=== PATIENT | female | born 2000 | race Caucasian/White ===

== ENCOUNTER → 2018-04-26 16:37 | Outpatient (CLI) | payer OTHER, SELFPAY ==
[2013-02-14 19:06] VITALS: BMI 24.9
--- NOTE | 2018-04-26 16:43 | RAD_ITS ---
STUDY: X-RAY - RIGHT HAND REASON FOR EXAM: Female, 18 years old. Injury to the right thumb this morning. MCP joint. TECHNIQUE: 3 view(s) of the hand. COMPARISON: None. FINDINGS: Normal radiocarpal articulation. Normal distal radioulnar joint. Normal visualized carpal bones. Normal carpal articulations Normal carpometacarpal articulation of the thumb. Normal second through fifth carpometacarpal joints. Normal metacarpi. Normal metacarpophalangeal joint of the thumb. Normal interphalangeal joint of the thumb. Normal proximal and distal phalanges of the thumb. Normal metacarpophalangeal joints of the second through fifth fingers. Normal proximal and distal interphalangeal joints of the second through fifth fingers. Normal phalanges of the second through fifth fingers. The soft tissue structures are unremarkable. RAD/Hand Min 3 Views IMPRESSION: Normal x-ray examination of the hand. Electronically Signed: Jaquan Tilley MD at 6:28 EST , Service support ,
== END ==
PROVIDERS: Family Provider Family Medicine; PCP Family Medicine; Referring Provider Family Medicine; Visit Provider Family Medicine
DX: M79.644 Pain in right finger(s) (principal)
CPT/HCPCS: 73130

== ENCOUNTER → 2020-06-28 15:45 | Outpatient (CLI) | payer OTHER, SELFPAY ==
[2020-06-28 14:27] VITALS: BMI 31.2
[2020-06-28 16:56] LABS: NATERA MAILED SPECIMEN
[2020-06-28 17:21] LABS: Absolute Lymphocyte Count 2.68 X10^3/uL (0.83-4.51); Absolute Neutrophil Count 8.1 X10^3/uL (2.0-7.7); Basophil# 0.06 X10^3/uL; Basophil% 0.5 % (0-1); Eosinophil# 0.27 X10^3/uL; Eosinophils% 2.1 % (0-5); Hematocrit 38.6 % (37-47); Hemoglobin 13.3 g/dL (12.0-15.0); Lymphocyte # 2.68 X10^3/ul (0.83-4.51); Lymphocyte % 21.3 % (19-41); Mean Corp Hgb Conc 34.5 g/dL (32-36); Mean Corpuscular Hgb 31.7 pg (27.0-32.0); Mean Corpuscular Volume 91.9 fL (81-99); Monocyte# 1.32 X10^3/uL; Monocyte% 10.5 % (0-10); NRBC Flagged by Analyzer 0 % (0-5); Neutrophil # 8.14 X10^3/uL (2.7-7.7); Neutrophil % 64.9 % (47-70); Platelet Count 247 K/mm3 (150-450); RBC Distribution Width CV 12.6 % (11.6-14.6); RBC Distribution Width SD 42.4 fl (35.1-43.9); White Blood Count 12.6 K/mm3 (4.4-11.0)
[2020-06-28 17:29] LABS: Amphetamine Urine VISTA POSITIVE (<1000 ng/mL); Barbiturate Urine VISTA NEGATIVE (< 200 ng/mL); Benzodiazepine Urine VISTA NEGATIVE (< 200 ng/mL); Cocaine Urine VISTA NEGATIVE (< 300 ng/mL); Ecstacy Urine VISTA NEGATIVE (< 500 ng/mL); Methadone Urine VISTA NEGATIVE (< 300 ng/mL); PCP Urine VISTA NEGATIVE (< 25 ng/mL); THC Urine VISTA POSITIVE (< 50 ng/mL); Vista UDS pH Range 5
[2020-06-28 18:03] LABS: Glucose Challenge Gest 1H 50g 85 mg/dL (70-140)
[2020-06-29 09:03] LABS: HIV - WCH Non-Reactive (Nonreactive); Hepatitis B Surface Antigen Non-Reactive (Nonreactive); Hepatitis C Antibody Non-Reactive (Nonreactive); Rubella IgG Reactive (Nonreactive); Syphilis Antibodies Non-reactive
[2020-07-04 20:08] LABS: Amphetamine Negative (Cutoff=500); Methamphetamines Positive (.)
[2020-07-04 20:21] LABS: Amphetamine Ur Confirm Positive (.)
== END ==
PROVIDERS: PCP Family Medicine; Referring Provider Obstetrics & Gynecology; Visit Provider Obstetrics & Gynecology
DX: O99.210 Obesity complicating pregnancy, unspecified trimester (principal); E66.9 Obesity, unspecified; Z31.430 Encounter of female for testing for genetic disease carrier status for procreative management
CPT/HCPCS: 36415; 80307; 82950; 85025; 86703; 86762; 86780; 86803; 86850; 86900; 86901; 87086; 87088; 87340

== ENCOUNTER → 2020-08-24 14:27 | Outpatient (CLI) | payer OTHER, SELFPAY ==
[2020-08-21 15:10] VITALS: BMI 31.2
--- NOTE | 2020-08-24 14:29 | US_ITS ---
STUDY: SECOND AND THIRD TRIMESTER OBSTETRICAL ULTRASOUND REASON FOR EXAM: Female, 20 years old screening anatomy LMP: 03/27/2020 TECHNIQUE: Transabdominal and Transvaginal TECHNICAL QUALITY: Adequate. PRIOR ULTRASOUND: None. FINDINGS: There is a single intrauterine fetus. The fetus is in a cephalic presentation. There is demonstrated cardiac activity with a heart rate of 152 bpm. There is a normal amniotic fluid volume. The largest amniotic fluid pocket measures 5.5 cm. The placenta is anterior and low lying but not previa in location. There are Grade 0 placental changes. The cervix measures 4.6 cm in length. The bilateral adnexal regions are normal. BIOMETRY: BPD: 5.1: 21 weeks, 3 days HC: 18.9: 21 weeks, 1 days AC: 16.2: 21 weeks, 2 days FL: 3.5: 20 weeks, 5 days CI: FL/BPD: FL/HC: FL/AC: HC/AC: age by current US: 21 weeks, 3 days. TAMMY by current US: 01-20. Estimated weight: 405 grams, +/- 61 grams, 31 %. Age by LMP: 21 weeks, 1 days. TAMMY by LMP: 01/03/2021. ANATOMY: Gender: Female Cranium: Normal lateral ventricles. Normal choroid plexus. Normal cerebellum. Normal cisterna magna. Normal face, nose and lips. Chest: Normal 4-chamber heart. Abdomen/Pelvis: Normal diaphragm. Normal stomach. Normal abdominal wall. Normal cord insertion. Normal 3 vessel cord. Normal kidneys. Normal bladder. Spine: Normal cervical spine. Normal thoracic spine. Normal lumbar spine. Normal sacrum. Extremities: Normal bilateral upper extremities. Normal bilateral lower extremities. IMPRESSION: Single live fetus in a vertex presentation. No demonstrated anatomic abnormality. Placenta is grade 0 and is not low-lying. Cervix is closed. age by current US: 21 weeks, 3 days. TAMMY by current US: 01-20. Estimated weight: 405 grams, +/- 61 grams, 31 %. Electronically Signed: Blair Milner MD at 15:53 EDT , Service support , STUDY: SECOND AND THIRD TRIMESTER OBSTETRICAL ULTRASOUND REASON FOR EXAM: Female, 20 years old screening anatomy LMP: 03/27/2020 TECHNIQUE: Transabdominal and Transvaginal TECHNICAL QUALITY: Adequate. PRIOR ULTRASOUND: None. FINDINGS: There is a single intrauterine fetus. The fetus is in a cephalic presentation. There is demonstrated cardiac activity with a heart rate of 152 bpm. There is a normal amniotic fluid volume. The largest amniotic fluid pocket measures 5.5 cm. The placenta is anterior and low lying but not previa in location. There are Grade 0 placental changes. The cervix measures 4.6 cm in length. The bilateral adnexal regions are normal. BIOMETRY: BPD: 5.1: 21 weeks, 3 days HC: 18.9: 21 weeks, 1 days AC: 16.2: 21 weeks, 2 days FL: 3.5: 20 weeks, 5 days CI: FL/BPD: FL/HC: FL/AC: HC/AC: age by current US: 21 weeks, 3 days. TAMMY by current US: 01-20. Estimated weight: 405 grams, +/- 61 grams, 31 %. Age by LMP: 21 weeks, 1 days. TAMMY by LMP: 01/03/2021. ANATOMY: Gender: Female Cranium: Normal lateral ventricles. Normal choroid plexus. Normal cerebellum. Normal cisterna magna. Normal face, nose and lips. Chest: Normal 4-chamber heart. Abdomen/Pelvis: Normal diaphragm. Normal stomach. Normal abdominal wall. Normal cord insertion. Normal 3 vessel cord. Normal kidneys. Normal bladder. Spine: Normal cervical spine. Normal thoracic spine. Normal lumbar spine. Normal sacrum. Extremities: Normal bilateral upper extremities. Normal bilateral lower extremities. US/OB Anatomy Scan IMPRESSION: Single live fetus in a vertex presentation. No demonstrated anatomic abnormality. Placenta is grade 0 and is not low-lying. Cervix is closed. age by current US: 21 weeks, 3 days. TAMMY by current US: 01-20. Estimated weight: 405 grams, +/- 61 grams, 31 %. Electronically Signed: Blair Milner MD at 15:54 EDT , Service support ,
== END ==
LOC: US 14:28
PROVIDERS: PCP Family Medicine; Referring Provider Obstetrics & Gynecology; Visit Provider Obstetrics & Gynecology
DX: Z36.9 Encounter for antenatal screening, unspecified (principal); Z3A.21 21 weeks gestation of pregnancy
CPT/HCPCS: 76805; 76817

== ENCOUNTER → 2020-11-02 14:26 | Outpatient (CLI) | payer OTHER, SELFPAY ==
[2020-11-02 16:10] LABS: Absolute Lymphocyte Count 2.13 X10^3/uL (0.83-4.51); Absolute Neutrophil Count 9.4 X10^3/uL (2.0-7.7); Basophil# 0.11 X10^3/uL; Basophil% 0.8 % (0-1); Eosinophil# 0.19 X10^3/uL; Eosinophils% 1.4 % (0-5); Hematocrit 34.9 % (37-47); Hemoglobin 11.9 g/dL (12.0-15.0); Lymphocyte # 2.13 X10^3/ul (0.83-4.51); Lymphocyte % 15.7 % (19-41); Mean Corp Hgb Conc 34.1 g/dL (32-36); Mean Corpuscular Volume 93.8 fL (81-99); Mean Platelet Vol. 10.5 fl (6.2-12.0); Monocyte# 1.11 X10^3/uL; Monocyte% 8.2 % (0-10); NRBC Flagged by Analyzer 0 % (0-5); Neutrophil # 9.43 X10^3/uL (2.7-7.7); Neutrophil % 69.4 % (47-70); Platelet Count 235 K/mm3 (150-450); RBC Distribution Width CV 12.4 % (11.6-14.6); RBC Distribution Width SD 42.5 fl (35.1-43.9); Red Blood Count 3.72 M/mm3 (4.2-5.4); White Blood Count 13.6 K/mm3 (4.4-11.0)
[2020-11-02 16:41] LABS: Glucose Challenge Gest 1H 50g 187 mg/dL (70-140)
== END ==
PROVIDERS: PCP Family Medicine; Visit Provider Obstetrics & Gynecology
DX: Z34.01 Encounter for supervision of normal first pregnancy, first trimester (principal)
CPT/HCPCS: 36415; 82950; 85025

== ENCOUNTER 2020-12-17 01:50 | Inpatient (IN) | payer OTHER, MEDICAID, SELFPAY ==
[2020-12-17] VITALS (34 sets, daily range): BP systolic 112–182; BP diastolic 50–94; PULSE 80–123; RESP 16–18; TEMP 36.3–36.9; O2SAT 91–100; BMI 32.4
[2020-12-17] MEDS: Lactated Ringers 1,000 ML 50 ML IV (02:15)
[2020-12-17] MEDS: Oxytocin 30 units/NS 500 ml 30 UNITS/500 ML IV.SOLN 334 UNITS IV (03:00)
--- NOTE | 2020-12-17 04:10 | HP.PCM.OB_ITS ---
HPI - General General Date of Admission: 12/17/20 HPI Narrative STEPAN QIU, is a 20 F who presents IAL 9 cm dilated and deliver precipitously. Maternal Data Information TAMMY Calculator Estimated Delivery Date Method Current WG Current Estimate 01/01/21 Ultrasound #1 37w 6d Other Estimates 01/16/21 LMP (Certain) 35w 5d PFSH PFSH Medical History (Updated 12/17/20 @ 04:00 by Sue Baig) Abnormal glucose affecting Anxiety Depression with anxiety Marijuana abuse Methamphetamine use Home Medications multivitamin no.47-iron fum 27 mg-folate no.1 1 mg-dha 300 mg capsule 1 cap PO 06/22/20 [History Last Taken Unknown] citalopram [Celexa] 10 mg PO DAILY 12/17/20 [History Last Taken Unknown] famotidine [Pepcid] 20 mg PO BID 12/17/20 [History Last Taken Unknown] Allergy/AdvReac Type Severity Reaction Status Date / Time No Known Allergies Allergy Verified 12/17/20 03:50 Family History Mother Diabetes Father Diabetes Grandmother Breast cancer Surgical History No significant past surgical history Social History adopted: No household members: significant other housing: house current occupational status: unemployed pets and animals: Yes Smoking Status: Current some day smoker second hand exposure: Yes alcohol intake: never substance use type: marijuana seatbelt use: always do you feel safe at home: Yes additional social history: BERONICA Dickinson ([employer]) History 1 Elective abortions Hx Para Spontaneous abortions Hx # Term Pregnancies Ectopic pregnancies Hx # Pregnancies Multiple births # of living children Visit Details Expected Delivery Route/Plan Labor Preferences- CB/BF classes: [] labor support person: [] labor intervention preferences: [] pain management options preferred: [] cut cord/dad catch: [] : yes PP control planned: [] discussed possible routes of delivery and associated risks: [] special requests: [] Plans flu vaccine: [] tdap vaccine: [] rhogam: [] LARC form signed: 11/16 Problem list reviewed and updated with the most current plan of care details and appropriate orders placed. Relevant counseling for the gestational age provided. Continue routine care and follow up unless otherwise noted in visit notes/problem list details OB Flowsheet Initial Weight: 176 lb Date -?-?-?-?-?-?-?-?-?-?-?-?- EGA Weight BP Urine Prot -?-?-?-?-?-?-?-?-?-?-?-?- Glucose FHR FuHt Pres Dilation -?-?-?-?-?-?-?-?-?-?-?-?- Effaced St Visit Note 08/21/20 -?-?-?-?-?-?-?-?-?-?-?-?- 21w 0d 174 lb (-2 lb) -?-?-?-?-?-?-?-?-?-?-?-?- 160 -?-?-?-?-?-?-?-?-?-?-?-?- SM- no vb charito mejia, discussed reflux and nausea- start pepcid, discussed A/D start celexa encouarged counseling 11/02/20 -?-?-?-?-?-?-?-?-?-?-?-?- 31w 3d 186 lb (+10 lb) 124/80 Negative -?-?-?-?-?-?-?-?-?-?-?-?- Negative 140 31 -?-?-?-?-?-?-?-?-?-?-?-?- GP - no LOF, VB, DFM, ctx. Discussed pepcid for reflux. Stopped taking zoloft due to side effects. Celexa prescribed. 11/16/20 -?-?-?-?-?-?-?-?-?-?-?-?- 33w 3d 185 lb 4 oz (+9 lb 4 oz) 120/88 Negative -?-?-?-?-?-?-?-?-?-?-?-?- Negative 155 33 -?-?-?-?-?-?-?-?-?-?-?-?- GP - no LOF, VB, DFM, ctx. Reflux and mood significantly improved. LARC form signed 12/17/20 -?-?-?-?-?--?-?-?-?-?-?-?- 37w 6d -?-?-?-?-?-?-?-?-?-?-?-?- -?-?-?-?-?-?-?-?-?-?-?-?- NST FHR Rate Baby A Baseline: 140 Variability:: Moderate Accelerations:: 15 x 15 Decelerations:: None NST Reactive:: Yes FHR Category:: Category I Uterine Activity:: q3-5 ROS Constitutional Constitutional: Reports systems reviewed and no addt'l complaints, except as documented ENT HEENT: Reports systems reviewed and no addt'l complaints, except as documented Cardiovascular Cardiovascular: Reports systems reviewed and no addt'l complaints, except as documented Respiratory/Chest Respiratory/Chest: Reports systems reviewed and no addt'l complaints, except as documented Gastrointestinal Gastrointestinal: Reports systems reviewed and no addt'l complaints, except as documented and nausea; Denies abdominal pain Genitourinary Genitourinary: Reports systems reviewed and no addt'l complaints, except as documented, contractions Details: present and frequency (regular ) and movement Details: present Musculoskeletal Musculoskeletal: Reports systems reviewed and no addt'l complaints, except as documented Integumentary Integumentary: Reports as per HPI Neurologic Neurologic: Reports systems reviewed and no addt'l complaints, except as documented Endocrine Endocrinology: Reports systems reviewed and no addt'l complaints, except as documented Physical Exam Const alert, oriented x3 and healthy appearing Constitutional Narrative: uncomfortable with contractions HEENT normocephalic and moist oral mucous membranes Head and Scalp: atraumatic Neck full ROM, no lymphadenopathy, supple and thyroid normal General: trachea midline Thyroid: thyroid normal Lymph Lymphatic: no lymphadenopathy noted Chest inspection of chest normal Resp normal respiratory effort Cardio regular rate GI normal to inspection, nondistended, normoactive bowel sounds, soft to palpation and non-tender Inspection: gravid external exam normal Bimanual Exam - Vag & Uterus: uterus non-tender Manual OB Exam: estimated gestational size appropriate, presentation cephalic, dilated, effaced and station Extremity normal to inspection General Extremity: Negative for edema Skin no rashes or lesions noted Neuro deep tendon reflexes 2+ bilaterally Motor Exam: strength 5/5 throughout and clonus absent Psych mental status grossly normal Labs Labs Labs: Blood Type O POSITIVE Antibody Screen NEGATIVE Hct 34.9 % (37-47) L Hgb 11.9 g/dL (12.0-15.0) L Obstetrics US Syphilis Total Ab Non-reactive Rubella IgG Antibody Reactive (Nonreactive) Hep Bs Antigen Non-Reactive (Nonreactive) HIV 1&2 Antibody Non-Reactive (Nonreactive) Glucose 1 Hr 50 gm 187 mg/dL (70-140) H Assessment & Plan (1) Depression with anxiety: COMMENT: counseling encouraged, Celexa (2) Marijuana abuse: COMMENT: needs random tox (3) Methamphetamine use: COMMENT: in past denies current use, random tox (4) Abnormal glucose affecting : COMMENT: needs 3 hr GTT (5) Obesity affecting : QUALIFIERS: Trimester: first trimester Qualified Code(s): O99.211 - Obesity complicating , first trimester COMMENT: GCT at NOB (6) High risk due to smoking: QUALIFIERS: Trimester: first trimester Qualified Code(s): O99.331 - Smoking (tobacco) complicating , first trimester COMMENT: patient has been cutting back (7) Family history of congenital anomaly of cardiovascular system: COMMENT: Brother had - W.P.W.- had heart ablation (8) Supervision of normal : QUALIFIERS: Normal : normal first Trimester: first trimester Qualified Code(s): Z34.01 - Encounter for supervision of normal first , first trimester COMMENT: PRR TAMMY: 01/01/21 Girl! John BF: Alok (9) : QUALIFIERS: Weeks of gestation: 33 weeks Qualified Code(s): Z3A.33 - 33 weeks gestation of COMMENT: NIPT- low risk and carrier neg . declined ntd screen. 08/25 anatomy us normal PLAN: admit precipitous delivery
--- NOTE | 2020-12-17 04:13 | OP.PCM_ITS ---
Assessment & Plan (1) : QUALIFIERS: Weeks of gestation: 33 weeks Qualified Code(s): Z3A.33 - 33 weeks gestation of COMMENT: NIPT- low risk and carrier neg . declined ntd screen. 08/25 anatomy us normal (2) Supervision of normal : QUALIFIERS: Normal : normal first Trimester: first trimester Qualified Code(s): Z34.01 - Encounter for supervision of normal first , first trimester COMMENT: PRR TAMMY: 01/01/21 Girl! Wyatt BF: Alok (3) Family history of congenital anomaly of cardiovascular system: COMMENT: Brother had - W.P.W.- had heart ablation (4) High risk due to smoking: QUALIFIERS: Trimester: first trimester Qualified Code(s): O99.331 - Smoking (tobacco) complicating , first trimester COMMENT: patient has been cutting back (5) Obesity affecting : QUALIFIERS: Trimester: first trimester Qualified Code(s): O99.211 - Obesity complicating , first trimester COMMENT: GCT at NOB (6) Abnormal glucose affecting : COMMENT: never got 3 hr GTT done, treat as diabetic (7) Methamphetamine use: COMMENT: in past denies current use, random tox (8) Marijuana abuse: COMMENT: needs random tox (9) Depression with anxiety: COMMENT: counseling encouraged, Celexa (10) Vaginal delivery: COMMENT: Precipitous, SM 37 girl wyatt GDMA, retained placenta at delivery- bedside curettage Maternal Data Information TAMMY Calculator Estimated Delivery Date Method Current WG Current Estimate 01/01/21 Ultrasound #1 37w 6d Other Estimates 01/16/21 LMP (Certain) 35w 5d Vaginal Delivery Operative Information Date of Procedure: 12/17/20 Pre-Operative Diagnosis: IAL Post-Operative Diagnosis: same plus retained placenta Surgery / Procedure Performed: Spontaneous Vaginal Delivery (And bedside curettage ) Type of Anesthesia: None Special Medications: none Estimated Blood Loss: 100 Fluids Replaced: crystalloid Findings Description of Procedure: Patient began pushing and delivered the head in the ROBI presentation. The head was delivered atraumatically and a loose nuchal cord ?1 was identified and the delivered through without complication. The anterior and posterior shoulders delivered without complication followed by the rest of the and the infant was placed on the maternal abdomen. Delayed cord clamping was employed for approximately 60 seconds. Cord was clamped and cut and gentle traction was applied to the cord and the placenta delivered mostly spontaneously within a few minutes but was not noted to be completely intact and was some membranes removed separately. Bedside ultrasound was performed and retained products were seen within the lining. Betadine prep was done of the vagina and then IV morphine given and bedside curettage performed with a [employer] curette under ultrasound guidance to confirm removal of all products. The perineum and vagina were inspected and noted to have no laceration. EBL was 300 cc. Methergine given. antibiotics will be given. Patient and infant tolerated delivery well. Presentation: ROBI Amniotic Membrane Rupture Type: Artificial Amniotic Fluid Description: Moderate meconium Placental Delivery Description: Spontaneous Placenta Disposition: [facility] Cord Vessel Description: 3 Vessels Cord Entanglement: Around neck x 1, loose Delayed Cord Clamping: Yes Post Vaginal Delivery Medications Given After Delivery: IV Pitocin and IM Methergin Episiotomy Description: None Laceration: None Complication Complications: None Multi Select Codes Urinary/Genital Urinary/Genital CPT Codes: 13007 Curettage, and 73917 Vaginal Delivery+ PP Care([facility])
--- NOTE | 2020-12-17 04:18 | PCM.DC ---
Discharge Instructions Diet Discharge Diet: No restrictions Activity Discharge Activity: Return to Normal Activity, May Not Drive (while taking narcotic pain medications.) and May Shower May resume sexual activity in: 4-6 weeks Dressing / Incision Call your doctor if your incision/area has: Continuous Slow Oozing, Sudden Increased Bleeding, Increased Pain/ Swelling, Increased Redness and Foul Smelling Discharge Follow Up Care Please Follow Up With: Jessica Carpio MD When: Call [phone] to make an appointment with your doctor in 6 weeks. If you had elevated blood pressure or 4th degree laceration, you will need to be seen in 2 weeks. Test Results: Test results from this visit will be discussed in further detail at your follow-up appointment, if applicable. Discharge Plan Admission Admit Date/Time: 12/17/20 01:50 Primary Reason for Your Visit: vaginal delivery Attending Provider: Jessica Carpio Primary Care Provider: Ray Vazquez Discharge Orders/Prescriptions Prescriptions: Continued PNV-DHA 27 mg iron-1 mg -300 mg capsule 1 cap PO RF: 0 citalopram [Celexa] 10 mg tablet 10 mg PO DAILY RF: 0 famotidine [Pepcid] 20 mg tablet 20 mg PO BID RF: 0 Referrals / Follow Up: Ray Vazquez MD [Primary Care Provider] - Disposition Disposition (needs filled in before D/C Order can be placed): Home, Self Care
[2020-12-17] MEDS: Ondansetron 4 MG/2 ML Vial IV (04:56)
[2020-12-17 04:58] LABS: Absolute Lymphocyte Count 2.28 X10^3/uL (0.83-4.51); Absolute Neutrophil Count 11.7 X10^3/uL (2.0-7.7); Basophil# 0.06 X10^3/uL; Basophil% 0.4 % (0-1); Eosinophil# 0.13 X10^3/uL; Eosinophils% 0.8 % (0-5); Hematocrit 36.6 % (37-47); Hemoglobin 12.3 g/dL (12.0-15.0); Lymphocyte # 2.28 X10^3/ul (0.83-4.51); Lymphocyte % 14.6 % (19-41); Mean Corp Hgb Conc 33.6 g/dL (32-36); Mean Corpuscular Hgb 30.7 pg (27.0-32.0); Mean Corpuscular Volume 91.3 fL (81-99); Mean Platelet Vol. 11.5 fl (6.2-12.0); Monocyte# 1.25 X10^3/uL; NRBC Flagged by Analyzer 0 % (0-5); Neutrophil # 11.68 X10^3/uL (2.7-7.7); Platelet Count 287 K/mm3 (150-450); RBC Distribution Width CV 12.8 % (11.6-14.6); RBC Distribution Width SD 42.2 fl (35.1-43.9); Red Blood Count 4.01 M/mm3 (4.2-5.4); White Blood Count 15.6 K/mm3 (4.4-11.0)
[2020-12-17] MEDS: HYDROmorphone 1 MG/ML Syringe IV (05:05)
[2020-12-17 06:01] LABS: Group B Strep DNA By PCR Negative (Negative); Internal Control PASS; Probe Check PASS; Specimen Processing Control PASS
[2020-12-17] MEDS: Methylergonovine 0.2 MG/ML Ampul IM (06:50)
[2020-12-17] MEDS: Citalopram 10 MG Tablet PO (10:33)
[2020-12-17] MEDS: Acetaminophen 500 MG Tablet 1000 MG PO ×2 (11:37→21:42)
[2020-12-17 13:29] LABS: Amphetamine Urine VISTA POSITIVE (<1000 ng/mL); Barbiturate Urine VISTA NEGATIVE (< 200 ng/mL); Benzodiazepine Urine VISTA NEGATIVE (< 200 ng/mL); Cocaine Urine VISTA NEGATIVE (< 300 ng/mL); Ecstacy Urine VISTA POSITIVE (< 500 ng/mL); Methadone Urine VISTA NEGATIVE (< 300 ng/mL); PCP Urine VISTA NEGATIVE (< 25 ng/mL); THC Urine VISTA POSITIVE (< 50 ng/mL); Vista UDS pH Range 6
--- NOTE | 2020-12-17 14:14 | NURSING ---
This nurse talked to pt. about needing a urine sample. Pt questioned about needing urine sample this nurse stated that tested positive amphetamines. The pt. stated that someone must have snuck that into the THC that she just recently used and that she quit everything but THC when she found out she was .
[2020-12-17] MEDS: Naproxen 500 MG Tablet PO (17:59)
[2020-12-17] MEDS: Ondansetron ODT 4 MG Tablet PO (21:03)
[2020-12-18 00:55] VITALS: BP 105/65; PULSE 91; RESP 17; TEMP 36.6; O2SAT 98
--- NOTE | 2020-12-18 04:58 | NURSING ---
All documentation by student Eden Ruelas reviewed by this RN Maria M.
--- NOTE | 2020-12-18 08:35 | PCM.PN.OB ---
Subjective Subjective Patient doing well without complaints. Tolerating PO. Ambulating and voiding without difficulty. Feeding well. Denies chest pain, shortness of breath, calf pain/swelling, fevers, chills, lightheadedness. Objective Data Objective Data Vital Signs: Vital Signs Temp Pulse Resp BP Pulse Ox 97.9 F 91 17 105/65 98 12/18/20 00:55 12/18/20 00:55 12/18/20 00:55 12/18/20 00:55 12/18/20 00:55 Oxygen Delivery Method Room Air Weight: 182 lb 15.739 oz Body Mass Index (BMI) 32.4 Intake & Output: Intake and Output for Last 24 Hours 12/16/20 12/17/20 12/18/20 23:59 23:59 23:59 Intake Total 730.83 / 730.83 Output Total 100 / 100 Balance 630.83 / 630.83 Lab / Micro Data Result Diagrams: 12/17/20 02:15 Labs: Laboratory Results - last 24 hr 12/17/20 12:30: Urine Opiates Screen POSITIVE H, Urine Methadone Screen NEGATIVE, Ur Barbiturates Screen NEGATIVE, Ur Phencyclidine Scrn NEGATIVE, Ur Amphetamines Screen POSITIVE H, U Methamphetamin-MDMA POSITIVE H, U Benzodiazepines Scrn NEGATIVE, Urine Cocaine Screen NEGATIVE, U Cannabinoids Screen POSITIVE H, Ur Drug Screen Comment Physical Exam Const alert and oriented x3 HEENT normocephalic Eyes PERRL Neck full ROM Resp normal respiratory effort GI soft to palpation GI Narrative: FF below U Assessment & Plan (1) Vaginal delivery: COMMENT: Precipitous, SM 37 girl gracelynn GDMA, retained placenta at delivery- bedside curettage (2) Methamphetamine use: COMMENT: in past denies current use, random tox (3) Marijuana abuse: COMMENT: needs random tox (4) Positive urine drug screen: PLAN: s/p PPD # 1 1. routine post delivery care 2. breast feeding- support given 3. rh positive 4. rubella immune 5. Social work consult pending. Discharge dependent on that
[2020-12-18] MEDS: Naproxen 500 MG Tablet PO (09:00)
[2020-12-18 09:09] VITALS: BP 96/57; PULSE 93; RESP 16; TEMP 36.6; O2SAT 98
[2020-12-18] MEDS: Citalopram 10 MG Tablet PO (10:46)
--- NOTE | 2020-12-18 12:00 | CASEMGMT ---
Social Work Assessment Labor and Delivery Unit Patient Address: [address], [place] [address]; [address] , [place] [address] Phone number: [phone] Date of Referral: 12/18/2020 Time of Referral: 1030 Referred By: Verbal notification by nursing staff and flour tester's Date of Intervention: 12/18/2020 Time of Intervention: 1200 Reason for Referral: Maternal history of substance use, both mom and baby with positive toxicology at delivery. History obtained from: Medical records and mother of baby (MOB) Lien Mongeyucaryn Household composition: MOB reports to live with the reported father of geovanna shelton (FOB) Alok Marlow. MOB and FOB just moved into this home 1 week ago. Patient's parent/guardian status: MOB is a 20-year-old single female, involved with the FOB 21. Involved since December 30, 2019. MOB denies any form of abuse, control or intimidation in this relationship. States that this is the best that MALDONADO has ever been treated. [place] baby is the first child for both. Baby is to be named Pamela Marlow, born 12/17/2020. Medical History: MALDONADO is 1, para 0 now 1 after delivering Pamela. MOB reports to have had a first [facility]. care limited there after. MOB with care visits on 06/28/2020 (13 weeks), 21 weeks, 31 weeks, and then 33 weeks on . Delivery at 37 weeks gestation. Apgars 7 and 9 at 1 and 5 minutes of life respectively. weight was 6 pounds 13 ounces. Delivery was precipitous, with MOB reporting to have been 9 cm upon arrival to the hospital. Educational Status: MOB reports she graduated from high school, and denies any issues with reading, writing, or learning comprehension. Financial Status: MOB was not working during the . Reports plan to stay at home in the timeframe. LARRY reportedly works at [employer], 5 days a week, 10 hours a day. Reports soon will have need to start work on Saturdays. Supplies: MOB reports to have necessary supplies including a bassinet, crib, cradle, car seat, clothing, diapers, wipes, and bottles. MOB is now planning to bottle-feed. Reports ability to purchase formula. Childcare/Caregiver(s): MOB will be the primary caregiver, with the help from FOB when he is home. Transportation: Reports during was reliant on others for transportation, but now has a reliable vehicle. Denies any future concerns about transportation. Programs/Agencies Involved: MOB reports going to the care center for first trimester ultrasound. No further follow-up however. Reports just applied for food stamps last week. Reports will apply for Medicaid and WIC. Verbally agrees to help me grow referral. Children Services/Legal Issues: Denies. Behavioral Health Issues: Mental Health History: MOB reports history of depression anxiety since teenage years. Reports a history of suicidal ideation, but denies any history of planning, identification of method, intent, or attempts. Reports her best friend by suicide in October 2019, and has had no further suicidal thoughts herself since that time, though reports had a very difficult time after her friend's . Reports to have realization now what impact suicide has on the family left behind. Identifies her child is another reason to live. Reports has been on Celexa during this . Plans to stay on it in the timeframe. Reports history of counseling as a teenager, but identifies is not very helpful at that time. Substance Use History: MOB endorses long history of marijuana including use throughout this . Reports use a couple of times a week during this with the last use being on the day of delivery, which was 12/17/2020. MOB endorses history of methamphetamine use, by snorting, with last use in May 2020 after finding out about . Despite positive drug screen at time of delivery, MOB maintains uncertainty how this got into the MOB's or the baby system. MOB denies any history of, or history during this of heroin, other opiates, cocaine, pills of any sort, or any other illicit drug use. Reports history of some alcohol use but nothing during this , and reports did not really like alcohol. MOB reports she is a former smoker and quit with . Family History: MOB reports her mother with a history of alcohol use issues, and her stepfather. Reports biological father with a history of bipolar disorder. Reports various other family members on the paternal side with bipolar disorder.MOB denies that the FOB uses any substances such as meth, but does occasionally use marijuana with the MOB. Drug Screens: MOB with a positive drug screen on 06/28/2020 for amphetamine and marijuana. Amphetamine confirmation on the screen was positive for both amphetamines and methamphetamines. Urine drug screen at time of delivery on 12/17/2020 + for opiates, amphetamines, and marijuana. There is an amphetamine confirmation being sent out. Please note medical record indicates the MOB was prescribed opiate pain medication during labor, prescribed and administered prior to urine collection. Infant's urine drug screen is positive for amphetamines on 12/17/2020. Meconium drug screen pending pending. Family/Social Stressors: MOB and FOB just moved from the FOB's grandparents home into their own home 1 week ago. MOB reports that this is a positive change, but also was a life stress. Limited care, reportedly due to unreliable transportation. Reports this however has resolved. Maternal substance use history, not in current treatment, with MOB testing positive for substances that MOB is stating has not used since May. Endorses some anxiety and having to disclose the amphetamine toxicology with the FOB or family. Support Systems: MOB reports the FOB is her primary emotional support. Additional emotional support from the MOB mother and stepfather. Reports he received practical support also from the FOB, and both MOB and FOB's respective grandparents. Note, that while MOB identified that the primary support, the FOB does reportedly work 10 hours a day, and left the MOB at the hospital last evening due to having to work today. MOB has had limited support in the hospital since delivery. Depression/Shaken Baby/Safe Sleeping: Educated MOB to shaken baby prevention, and the importance of setting the baby down and/or asking for help. Educated to safe sleeping, and the importance of adhering to safe sleep recommendations. Broached concerns about repeated need for sleep education. Validated that MOB is likely feeling tired, but even more important that if feeling tired to place baby in the crib. MOB nodded head yes and understanding. Educated to mood and anxiety disorders, including risk for psychosis; risk factors, and the importance of seeking out help and support. MOB states that the FOB has been researching mood and anxiety disorders himself, so as to know what to look for in the MOB. ASSESSMENT: Collaboration with the flour tester today regarding infant's care needs and potential plan of care. Met with the MOB, who upon the manager social services entering the room was laying in bed and holding the baby on her chest, while the MOB was on the phone. MOB held the baby for most of the social work visit, and was gentle with the baby. MOB set the baby down the crib one point and the baby continued to sleep peacefully. MOB reports to have necessary supplies to care for the baby, and identifies feeling that she has adequate support. MOB reports intent to remain on her antidepressant medication. Reports agreement for help me grow referral, and intent to follow-up with both WIC and job and family services. Educated MOB to the need for social work, as a mandated general assignment reporter, to notify children services to baby's intrauterine exposure to substances. From this point, discussed MOB's drug use history, which MOB maintained throughout assessment does not understand how amphetamines or methamphetamines could be in either her system, or the baby's system. MOB made a comment about how had worked hard to turn her life around. MOB reports that her family is aware of marijuana use history. MOB reports the FOB is aware of a history of methamphetamine use, but not any positive screens during . Reports her other family is not at all aware of any history of methamphetamine use. Note, MOB reports she was unaware of testing positive at the 13-week visit, and expressed surprise that would have been positive for such drugs at that time. Discussed with the MOB, that as both MOB and positive for amphetamines at delivery, this would likely be a situation where children services would want to see the family prior to discharge from the hospital. MOB made a comment about not going home today. Educated MOB that the flour tester would be in later today to discuss the plan of care for the baby, and that in some instances infants do have to remain in the hospital for 3 to 7 days of withdrawal monitoring, and that this is a possibility for an extended stay. MOB then became tearful making comments about just wanting to go home to be with her fianc? and with her baby at home. Educated MOB the purpose for any monitoring of the infant is to ensure safety, rather than going home and having difficulties, which could be even more stressful and life altering. Emotional support provided, but kept the focus on the need to provide the appropriate standard of care to the baby. MOB accepting of this, though tearful and upset with the idea of not discharging today. MOB was cooperative with this travel writer during assessment, even after learning of need to call children services. Eye contact good. MOB did appear to become anxious with the idea of staying in the hospital longer as evidenced by becoming tearful and affect constricting. Note, this travel writer did broach the topic of a safety plan in conjunction with children services involvement, and that likely children services would need to talk to the FOB about concerns. Urged MOB to consider being open and honest with the FOB regarding the concerns for baby. Safe Plan of Care for related to substance use: MOB state to have intent to abstain from any future drug use including marijuana. Does not plan to breast-feed. Should something change however, and MOB were to use substances again, would not use around the child and more ensure there is a sober person caring for the baby. PLAN: Social work to follow. Will be making a report to children services and collaborating for safe plan for the baby. Will be making a referral referral. -EMILE Rothman, TATUM *This note was generated with [employer] dictation software. It may contain incorrect words, spelling, and punctuation that were not noted in review of the chart prior to signing*
[2020-12-18 13:40] VITALS: BP 128/72; PULSE 104; RESP 16; TEMP 36.4; O2SAT 100
--- NOTE | 2020-12-18 17:41 | CASEMGMT ---
Social Work Labor and Delivery Unit Collaboration with cotton wringer who informed that baby will be monitored for 5 days. Referral to [facility] at [phone]. Spoke with intake supervisor home energy consultant Chloe Jones, extension [phone]. Referral due to substance exposed infant in utero, including maternal and drug screens. Notified of continued need educate the MOB on safe sleeping. Brief maternal and infant histories provided. Updated that MOB is willing to have a help me grow referral, as well as states willingness for referral that children services may recommend. Spoke with cotton wringer again who reports the mother of baby (MOB) and MOB mother/infant's maternal grandmother with questions about medical coverage for the baby, in light of an extended stay. Received call from Kacey Heller at [facility], extension [phone]. Kacey is the assigned intake industry operations investigator. Clarified referral information and reviewed reported FOB's involvement. Kacey plans to come to the hospital on 12/19/2020 to visit with the MOB and discussed potential for safety plan at discharge. Met with the MOB, and the infant's maternal grandmother Lvaonne Mongeyucaryn present in the room and holding the baby. Introduced to self, and asked Lavonne to leave because of need to go over some resources and do a depression screen. Lavonne left the room willingly. Completed Ocate depression screen with the MOB, with a score of 4. The scores below the threshold for depression. Positive answers were surrounded around anxiety, which MOB attributed to moving a week ago. Note during initial social work assessment the MOB had identified marijuana as a way to cope with depression anxiety. Outside of depression however MOB identified taking care of livestock and being outside. MOB questioned whether children services has been called, which this magazine writer educated that indeed call has been made. Educated that Kacey will be coming to the hospital tomorrow for a visit and will be reviewing a safety plan option. This magazine writer urged the MOB to think about who could provide assistance with a safety plan. Broached with a safety plan means and that MOB would need supervision in order to care for the baby. MOB voiced that her grandparents may be an option when the FOB is working. This magazine writer let MOB know that FOB would also have to check out for the safety plan. MOB asked if this magazine writer would be present during the visit [facility], stating I would feel better. This magazine writer broached with the MOB again about being open and honest, at least with the FOB, about the concerns regarding the baby. MOB reports that her family, including Lavonne, are aware of all marijuana usage but I am not aware of drug screen showing positive for amphetamines. MOB reports that her mother would disown me if was aware of any history of methamphetamine use. MOB made a comment that maybe the meth was laced in a blunt that the MOB used at a friend's house. MOB maintains that have been working to turn her life around and was not using meth, just marijuana. Reviewed with the MOB that as there was positive drug screen at the beginning of and also the same results at time of delivery with nothing in between showing change, it appears that use has been ongoing. Acknowledged that people can make change, and do make changes, but that this is shown by action, which has not been shown between the beginning of and the end of . Discussed likelihood of children services will need to drug screens, which MOB asked if that could be done. Let MOB know that likely children services would be drug testing the MOB. MOB intermittently tearful during social work visit, mostly around the time when MOB with discussing desire to be at home with her fianc?, and that does not like being in the hospital. Tears were intermittent. MOB voiced anxiety over need to figure out what to tell the FOB. Gently challenged the MOB to this wording, that if MOB has to figure out what to tell the FOB, overall it is just very important to be honest because eventually the truth comes out, and when honesty is not provided upfront this can impact trust. MOB then changed wording to how to tell the FOB about the amphetamine drug screens. This magazine writer offered to help MOB with telling the FOB, but the MOB declined. MOB expressed frustration and that she may have to tell her grandparents about substance use, should they be the people helping with a safety plan. MOB adamant that does not want her mom to know about the methamphetamine history. Answered all of MOB questions and strongly encouraged the MOB to start discussions with the FOB in the least. Upon this magazine writer walking out of the room, Lavonne was standing outside of the room and abruptly asked for this magazine writer's name again. Provided the name and asked if Lavonne had a question. Lavonne indicated that she had questions. This magazine writer returned back to the room to have conversation in the presence of the MOB. Lavonne questioned why the baby was being monitored if the baby appears healthy right now, making note that has awareness of testing for the baby. Lavonne disclosed awareness of history of marijuana use and also that MOB was prescribed an antianxiety medication. Lavonne asked whether the baby is being monitored for one of these drugs. This magazine writer provided general answers that it could be a combination of reasons why the baby is being monitored. Educated also that while the child can appear healthy, that withdrawal symptoms do not always start on the first day and appear in time, which is the reasoning behind extended observation. This magazine writer discussed potential withdrawal symptoms, and that the hospital is trying to provide a standard of care to the baby. Lavonne accepted this, but expressed concern for the MOB, stating to feel the MOB would do much better at home. Acknowledged and validated frustration that this is not the course of treatment anybody has expected, but again the focus needs to be right now on making sure that the baby's care is safe. Lavonne voiced that the father of baby, left work early to come to the hospital to find out more, will have some questions and is mad. This magazine writer acknowledged that the FOB can be mad and have whatever feelings he has, but that this does not change the standard of care for the baby. Agreed to speak with the FOB to help with understanding, should the FOB have questions. Left this magazine writer's name and number on the white board in the room. Also let the MOB know as to what time this magazine writer would be at the hospital until today. Lavonne also questioned whether any additional referrals are needed to be made such as children services. MOB interjected and informed Lavonne that children services is already involved. Lavonne voiced frustration, making comments that it is not like MOB was using heroin. MOB voiced that had used a drug and this is why children services is involved. This magazine writer educated that if any illicit drug use is used, or even a prescribed drug is misused this warrnts a children services referral, and potential involvement. Refocused conversation that a goal of children services is to try and help the family have necessary supports and services to help provide for safe care of the child. Plan: Social work will continue to follow and assist. Will collaborate with children services. Will make help me grow referral and monitor for meconium drug screen results. -HO Rothman, PREPARATION SUPERVISOR *This note was generated with [employer] dictation software. It may contain incorrect words, spelling, and punctuation that were not noted in review of the chart prior to signing*
[2020-12-18 20:09] VITALS: BP 120/69; PULSE 92; RESP 18; TEMP 36.9
[2020-12-19 03:06] VITALS: BP 99/37; PULSE 84; RESP 16
--- NOTE | 2020-12-19 07:47 | PCM.PN.OB ---
Subjective Subjective Patient doing well without complaints. Tolerating PO. Ambulating and voiding without difficulty. Feeding well. Denies chest pain, shortness of breath, calf pain/swelling, fevers, chills, lightheadedness. Objective Data Objective Data Vital Signs: Vital Signs Temp Pulse Resp BP Pulse Ox 98.4 F 84 16 99/37 L 100 12/18/20 20:09 12/19/20 03:06 12/19/20 03:06 12/19/20 03:06 12/18/20 13:40 Oxygen Delivery Method Room Air Weight: 182 lb 15.739 oz Body Mass Index (BMI) 32.4 Intake & Output: Intake and Output for Last 24 Hours 12/17/20 12/18/20 12/19/20 23:59 23:59 23:59 Intake Total 730.83 / 730.83 Output Total 100 / 100 Balance 630.83 / 630.83 Lab / Micro Data Result Diagrams: 12/17/20 02:15 Physical Exam Const alert and oriented x3 HEENT normocephalic Eyes PERRL Neck full ROM Resp normal respiratory effort GI soft to palpation GI Narrative: FF below U Assessment & Plan (1) Vaginal delivery: COMMENT: Precipitous, SM 37 girl gracelynn GDMA, retained placenta at delivery- bedside curettage (2) Positive urine drug screen: (3) Abnormal glucose affecting : COMMENT: never got 3 hr GTT done, treat as diabetic (4) Methamphetamine use: 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 routine post delivery care 2. breast feeding- support given 3. rh positive 4. rubella immune 5. Hotel status today as baby will stay 5 days due to positive drug screen. SW and Children services involved
[2020-12-19 08:15] VITALS: BP 123/58; PULSE 73; RESP 16; TEMP 37
[2020-12-19] MEDS: Acetaminophen 500 MG Tablet 1000 MG PO (10:49)
[2020-12-19] MEDS: Citalopram 10 MG Tablet PO (12:12)
[2020-12-19 13:52] VITALS: BP 127/77; PULSE 83; RESP 16; TEMP 36.8
--- NOTE | 2020-12-19 14:05 | CASEMGMT ---
Social Work Labor and Delivery Records (patient and baby's) reviewed. Noted, and appreciated, documentation regarding parent/child interactions. Noted that continued safe sleep education has been needed for this family, but that mother of baby (MOB) has been appropriate otherwise with baby care. Received update from both the professor of theology and MOB's RN today regarding MOB's continued anxiety regarding how to talk to family about social situation and reasoning behind extended stay/children services involvement. Met with MOB in room. MOB reports has not yet told the father of baby (FOB) about the amphetamine screens and doesn't know how to start the conversation. FOB took off work to be at meeting with children services today. This contract writer offered to meet with MOB and FOB together to talk about concerns, so as to provide support to MOB, but MOB chose to meet with the FOB outside. MOB voiced feeling like a failure as a mother already, due to having children services involvement. Supportive listening provided, as well as refocused conversation to acknowledging that cannot change the past, but can move forward by making decisions based on goals for the future. MOB also expressed that a big fear in telling the FOB about the drug screens is that FOB will leave MOB. Acknowledged that conversation may be hard, but that honesty is better in the long run. Confirmed whether MOB still desires for this contract writer to be present at meeting with [facility]. MOB states that does prefer this. Kacey Heller to unit to meet with MOB and FOB. Updated Kacey and did inform of continued safe sleeping education, as well as MOB's plan to update FOB to concern about amphetamines. This contract writer, Kacey, MOB and FOB met together. MOB holding baby during meeting. This contract writer observed MOB and FOB both to be cooperative with children services. FOB appearing anxious as evidenced by quick and abrupt questions, and then apologetic and commenting that just wants to ask things as thinking of them. MOB subdued, quiet, engaged in conversation, affect constricted. Observed both MOB and FOB express willingness to engage in services and do what is asked by children service. MOB decided on [facility] for drug and alcohol assessment and willingly complied with request for drug screen by [facility]. MOB continues to agree to [facility] referral and will work on getting baby a pediatric appointment, WIC follow up, and appointment with [facility]. MOB provided names of grandparents as options for safety plan, and FOB provided his aunts name, who reportedly works in law enforcement. During conversation the FOB admitted to being on probation and going to [facility] himself for counseling/anger management/and has had AOD assessment. FOMikayla reports probation from charges 2 years ago for unlawful restraint. FOB denies any drug use history for himself. MOB did reported intent to abstain from any further use, as well as cut ties with people that had been smoking marijuana with, who likely also had meth in the same home. Plan: MOB will discharge to home, staying on hotel status until baby is discharged. Hospital social work will continue to follow and assist family during baby's hospitalizations. [facility] involved and working on a safety plan - Anticipate baby home with MOB and FOB, and then MOB and baby to be with alternate family while FOB is working. [facility] is working on confirming that additional family members are appropriate for safety plan to be finalized prior to baby's discharge. [facility] will see family at home on Thursday12.24.2020. MOB is working on follow up appointments. [facility] referral to be made. -EMILE Rothman, TATUM
[2020-12-23 09:07] LABS: Amphetamine Positive (.); AmphetamineGC/MS Conf 4188 ng/mL (Cutoff=500); Methamphetamines Positive (.)
[2020-12-23 13:29] LABS: Amphetamine Ur Confirm Positive (.)
== END 2020-12-19 18:32 | disposition home or self-care (01) | DRG 806 ==
PROVIDERS: Admitting Provider Obstetrics & Gynecology; PCP Family Medicine; Visit Provider Obstetrics & Gynecology
DX: O62.3 Precipitate labor (principal); O72.2 Delayed and secondary postpartum hemorrhage; Z37.0 Single live birth; O99.324 Drug use complicating childbirth; O77.0 Labor and delivery complicated by meconium in amniotic fluid; O69.81X0 Labor and delivery complicated by cord around neck, without compression, not applicable or unspecified; O99.211 Obesity complicating pregnancy, first trimester; E66.9 Obesity, unspecified; F12.10 Cannabis abuse, uncomplicated; F15.90 Other stimulant use, unspecified, uncomplicated; O99.344 Other mental disorders complicating childbirth; F32.A Depression, unspecified; F41.9 Anxiety disorder, unspecified; O99.334 Smoking (tobacco) complicating childbirth; F17.200 Nicotine dependence, unspecified, uncomplicated; Z3A.37 37 weeks gestation of pregnancy
CPT/HCPCS: 59050; 80307; 85025; 86850; 86900; 86901; 87081; 87653; 99218; J7120; G0378; J2405

== ENCOUNTER 2021-12-17 17:25 | Outpatient (CLI) | payer OTHER, MEDICAID, SELFPAY ==
[2021-12-17 17:12] VITALS: BP 137/86; PULSE 125; RESP 16; TEMP 36.4; O2SAT 98; BMI 33.6
--- NOTE | 2021-12-17 17:20 | ED.RN ---
While triaging pt more about sym. Pt stating I have not felt baby move for awhile Pt stating the last time was this AM this thinks and that she was starting to have lower back pain. Pt sent to OB.
[2021-12-17 17:39] VITALS: BMI 34.2
[2021-12-17 17:45] VITALS: BP 112/63; PULSE 118
[2021-12-17 17:50] VITALS: TEMP 36.7
[2021-12-17 18:00] LABS: Color, Urine Yellow (Yellow); Glucose, Dipstick Normal (Normal); Ketone-Dipstick 5 mg/dl (Negative); Leukocyte Esterase-Dipstick 500 /ul (Negative); Nitrite-Dipstick Negative (Negative); Occult Blood-Urine Negative /ul (Negative); Protein-Dipstick 15 mg/dl (Negative); Urine Bilirubin Dipstick Negative (Negative); Urine Clarity Sl. Cloudy (Clear); Urine Urobilinogen 1 mg/dl (Normal)
[2021-12-17 18:12] LABS: Amphetamine Urine VISTA NEGATIVE (<1000 ng/mL); Barbiturate Urine VISTA NEGATIVE (< 200 ng/mL); Benzodiazepine Urine VISTA NEGATIVE (< 200 ng/mL); Cocaine Urine VISTA NEGATIVE (< 300 ng/mL); Ecstacy Urine VISTA NEGATIVE (< 500 ng/mL); Methadone Urine VISTA NEGATIVE (< 300 ng/mL); PCP Urine VISTA NEGATIVE (< 25 ng/mL); THC Urine VISTA POSITIVE (< 50 ng/mL); Vista UDS pH Range 8
--- NOTE | 2021-12-17 19:08 | OB.TRI.HP_ITS ---
HPI - General HPI Narrative STEPAN QIU, is a 21 y/o G21 @ 33 weeks who presents to L&D for complaints of burning with urination. She denies contractions, loss of fluid, vaginal bleeding, or dec fm. [facility] Medical History (Updated 12/17/21 @ 19:[address] Chloe Portillo, DO) Abnormal glucose affecting Anxiety Depression with anxiety Marijuana abuse Methamphetamine use Home Medications multivitamin no.47-iron fum 27 mg-folate no.1 1 mg-dha 300 mg capsule (PNV-DHA) 1 cap PO Check with primary doctor 06/22/20 [History Last Taken Unknown] citalopram 10 mg tablet (Celexa) 10 mg PO DAILY Check with primary doctor 12/17/20 [History Last Taken Unknown] famotidine 20 mg tablet (Pepcid) 20 mg PO BID Check with primary doctor 12/17/20 [History Last Taken Unknown] nitrofurantoin monohydrate/macrocrystals 100 mg capsule (Macrobid) 100 mg PO BID #14 caps 12/17/21 [Rx Last Taken Unknown] Allergy/AdvReac Type Severity Reaction Status Date / Time No Known Allergies Allergy Verified 12/17/21 17:15 Family History Mother Diabetes Father Diabetes Grandmother Breast cancer Surgical History No significant past surgical history Social History adopted: No household members: significant other housing: house current occupational status: unemployed pets and animals: Yes Smoking Status: Former smoker second hand exposure: Yes alcohol intake: never substance use type: marijuana seatbelt use: always do you feel safe at home: Yes additional social history: BF- Alok ([employer]) History 1 Elective abortions Hx Para 0 Spontaneous abortions Hx # Term Pregnancies Ectopic pregnancies Hx # Pregnancies Multiple births # of living children 1 Past Pregnancies Del. Date Name GA/Weeks Outcome Route Bth Weight Infant Gen Labor Lgth Anesthesia Del Locatn Provider FOB 12/17/20 Aleidacelmarielena 37 live - full term Female [facility] Dr. Balaji RIOS Constitutional Constitutional: Reports systems reviewed and no addt'l complaints, except as documented Gastrointestinal Gastrointestinal: Denies bloating, constipation, cramping, diarrhea, nausea or vomiting Genitourinary Genitourinary: Reports other Details: Denies vaginal odor, vaginal bleeding, or vaginal discharge ; Denies difficulty urinating or flank pain Physical Exam HEENT normocephalic Resp normal respiratory effort and normal air movement no CVA tenderness Extremity normal to inspection General Extremity: edema bilateral (trace ) NST FHR Rate Baby A Baseline: 140 Variability:: Moderate Accelerations:: 15 x 15 Decelerations:: None NST Reactive:: Yes FHR Category:: Category I Assessment & Plan (1) Positive urine drug screen: (2) UTI in : (3) Marijuana abuse: COMMENT: needs random tox (4) Methamphetamine use: COMMENT: in past denies current use, random tox Positive at delivery 12/17/20 PLAN: Plan Macrobid for UTI sent to pharmacy. will call with sensitivities. pt sees physician in [place] and will follow up with them next week encouraged to stop drug use in . PO hydration encouraged. Charges/Coding Multi Select Codes Visit Charges Office Visit/Consults: 95801 OV L3 Est Urinary/Genital Urinary/Genital CPT Codes: 34789-78 non-stress test Interp
[2021-12-17] MEDS: Nitrofurantoin Macrocrystals 100 MG Capsule PO (19:12)
[2021-12-17] MEDS: Acetaminophen 500 MG Tablet 1000 MG PO (19:12)
== END 2021-12-17 19:14 | disposition home or self-care (01) ==
LOC: WPOUT 17:35 → WP 17:36
PROVIDERS: PCP Family Medicine; Referring Provider Obstetrics & Gynecology; Visit Provider Obstetrics & Gynecology
DX: O23.43 Unspecified infection of urinary tract in pregnancy, third trimester (principal); F12.10 Cannabis abuse, uncomplicated; F15.90 Other stimulant use, unspecified, uncomplicated; O99.323 Drug use complicating pregnancy, third trimester; O99.343 Other mental disorders complicating pregnancy, third trimester; F41.8 Other specified anxiety disorders; Z3A.33 33 weeks gestation of pregnancy; Z87.891 Personal history of nicotine dependence
CPT/HCPCS: 59025; 59050; 80307; 81002; 87077; 87086; 87088; 99218; G0378

== ENCOUNTER 2022-01-08 10:14 | Emergency (ER) | payer OTHER, MEDICAID, SELFPAY ==
[2022-01-08 10:15] VITALS: BP 116/75; PULSE 95; RESP 18; TEMP 36.6; O2SAT 100; BMI 33.6
--- NOTE | 2022-01-08 11:13 | EX.ED.DYSGE1 ---
HPI History of Present Illness Chief Complaint: Nausea/Vomiting Informant: patient Narrative Narrative: 21-year-old female at approximately 35 weeks gestation presenting to the emergency department with nausea and vomiting. Patient states that this been a difficult past couple days that she has not been able to tolerate many p.o. fluids or food. She notes that she has not had any significant hyperemesis this . She denies any diarrhea or fevers. No URI symptoms. She denies any leakage of fluid or bleeding. She is feeling the baby move appropriately. [facility] Medical History Abnormal glucose affecting Anxiety Depression with anxiety Marijuana abuse Methamphetamine use Home Medications multivitamin no.47-iron fum 27 mg-folate no.1 1 mg-dha 300 mg capsule (PNV-DHA) 1 cap PO Check with primary doctor 06/22/20 [History Last Taken Unknown] citalopram 10 mg tablet (Celexa) 10 mg PO DAILY Check with primary doctor 12/17/20 [History Last Taken Unknown] famotidine 20 mg tablet (Pepcid) 20 mg PO BID Check with primary doctor 12/17/20 [History Last Taken Unknown] nitrofurantoin monohydrate/macrocrystals 100 mg capsule (Macrobid) 100 mg PO BID #14 caps 12/17/21 [Rx Last Taken Unknown] Allergy/AdvReac Type Severity Reaction Status Date / Time No Known Allergies Allergy Verified 01/08/22 10:17 Family History Mother Diabetes Father Diabetes Grandmother Breast cancer Surgical History No significant past surgical history Social History adopted: No household members: significant other housing: house current occupational status: unemployed pets and animals: Yes Smoking Status: Former smoker second hand exposure: Yes alcohol intake: never substance use type: marijuana seatbelt use: always do you feel safe at home: Yes additional social history: BERONICA Dickinson ([employer]) ROS ROS ED Constitutional Constitutional ED: Denies chills or weight loss Eyes Eyes: Denies change in vision or diplopia ENT ENT ED: Denies ear pain, rhinorrhea or sore throat Cardiovascular Cardiovascular: Denies chest pain, orthopnea, palpitations or racing heartbeat Respiratory/Chest Respiratory/Chest: Denies cough, dyspnea or orthopnea Gastrointestinal Gastrointestinal: Reports nausea and vomiting; Denies abdominal pain, constipation or diarrhea Genitourinary Genitourinary ED: Denies dysuria, hematuria or urinary frequency Musculoskeletal Musculoskeletal: Denies arthralgias or myalgias Integumentary Denies abscess or rash Neurologic Neurologic: Denies headache(s) or weakness Psychiatric Psychiatric: Denies anxiety, depression, suicidal ideation or suicidal thoughts Endocrine Endocrinology: Denies polydipsia, polyphagia or polyuria Allergic/Immunologic Allergic/Immunologic ED: Denies mouth swelling, tongue swelling or urticaria EXAM Physical Exam Const Vital Signs: 01/08/22 10:15 01/08/22 12:03 Temperature 97.9 F 98.1 F Temperature Source Temporal Oral Pulse Rate 95 Respiratory Rate 18 Blood Pressure 116/75 Blood Pressure Mean 88 Pulse Ox 100 Oxygen Delivery Method Room Air Positive well nourished and well developed General Appearance ED: well developed HEENT Reports normocephalic, head/scalp atraumatic and moist mucous membranes Eyes PERRL and EOMs intact bilaterally Neck no lymphadenopathy, supple and no JVD Resp normal respiratory effort and clear to auscultation bilaterally Cardio regular rate, regular rhythm and no murmurs GI normal to inspection, nondistended, normoactive bowel sounds and non-tender GI Narrative: Gravid uterus Palpation: soft Back/Spine no CVA tenderness and normal ROM Extremity normal to inspection General Extremety ED: Negative for edema General Extremity: Negative for edema Neuro oriented x3 and CN's II-XII intact bilaterally Sensorium / Orientation: alert Motor Exam: strength 5/5 throughout Psych mental status grossly normal Mood & Affect: Negative for depressed or tearful Skin no rashes or lesions noted and no wounds MDM MDM MDM Narrative Medical decision making narrative: Basic blood work was obtained and was negative. Patient received a dose of Zofran as well as Compazine and Benadryl. IV fluids were given. Basic electrolytes were normal. At this point patient will be discharged home. She is feeling better and has passed a p.o. challenge Lab Data Attestation: I reviewed the patient's lab results. Labs: Laboratory Results - last 24 hr 01/08/22 01/08/22 11:15 11:15 WBC 12.8 H RBC 4.09 L Hgb 12.9 Hct 37.6 MCV 91.9 MCH 31.5 MCHC 34.3 RDW Std Deviation 47.2 H RDW Coeff of Esteban 14.0 Plt Count 216 MPV 11.0 Immature Gran % (Auto) 0.500 Neut % (Auto) 82.9 H Lymph % (Auto) 10.9 L Troup % (Auto) 4.9 Eos % (Auto) 0.5 Baso % (Auto) 0.3 Absolute Neuts (auto) 10.6 H Absolute Lymphs (auto) 1.39 Nucleated RBC % 0 Sodium 140 Potassium 3.8 Chloride 108 H Carbon Dioxide 26.0 Anion Gap 6 BUN 8 Creatinine 0.91 Estim Creat Clear Calc 79.54 Est GFR (MDRD) Af Amer 98 Est GFR (MDRD) Non-Af 81 BUN/Creatinine Ratio 8.8 L Glucose 92 Calcium 9.5 Total Bilirubin 0.30 AST 19 ALT 27 Alkaline Phosphatase 148 H Total Protein 7.3 Albumin 3.0 L Globulin 4.3 H Albumin/Globulin Ratio 0.7 L Discharge Plan Triage Chief Complaint: Nausea/Vomiting ED Provider: Aleksander Leach Dx/Rx/DC Orders Clinical Impression: Third trimester , Vomiting Instructions: ED Vomiting (Adult) Prescriptions: No Action PNV-DHA 27 mg iron-1 mg -300 mg capsule 1 cap PO citalopram [Celexa] 10 mg tablet 10 mg PO DAILY famotidine [Pepcid] 20 mg tablet 20 mg PO BID nitrofurantoin monohyd/m-cryst [Macrobid] 100 mg capsule 100 mg PO BID Qty: 14 0RF Rx Instructions: must administer with a meal/food Primary Care Provider: Ray Vazquez Referrals: Ray Vazquez MD [Primary Care Provider] - As Needed Disposition Disposition: Home, Self Care
[2022-01-08] MEDS: 0.9% Normal Saline 1,000 ML 1000 ML IV (11:15)
[2022-01-08] MEDS: Ondansetron 4 MG/2 ML Vial IV (11:15)
[2022-01-08 11:27] LABS: Absolute Lymphocyte Count 1.39 X10^3/uL (0.83-4.51); Absolute Neutrophil Count 10.6 X10^3/uL (2.0-7.7); Basophil# 0.04 X10^3/uL; Basophil% 0.3 % (0-1); Eosinophil# 0.06 X10^3/uL; Eosinophils% 0.5 % (0-5); Hematocrit 37.6 % (37-47); Hemoglobin 12.9 g/dL (12.0-15.0); Lymphocyte # 1.39 X10^3/ul (0.83-4.51); Lymphocyte % 10.9 % (19-41); Mean Corp Hgb Conc 34.3 g/dL (32-36); Mean Corpuscular Hgb 31.5 pg (27.0-32.0); Mean Corpuscular Volume 91.9 fL (81-99); Monocyte# 0.63 X10^3/uL; Monocyte% 4.9 % (0-10); NRBC Flagged by Analyzer 0 % (0-5); Neutrophil # 10.58 X10^3/uL (2.7-7.7); Neutrophil % 82.9 % (47-70); Platelet Count 216 K/mm3 (150-450); RBC Distribution Width SD 47.2 fl (35.1-43.9); Red Blood Count 4.09 M/mm3 (4.2-5.4); White Blood Count 12.8 K/mm3 (4.4-11.0)
[2022-01-08 11:52] LABS: ALB/GLOB Ratio 0.7 RATIO (0.9-2.4); AST(SGOT) 19 U/L (15-37); Alanine Aminotransfer ALT/SGPT 27 U/L (13-56); Alkaline Phosphatase 148 U/L (45-117); Anion Gap 6 (5-15); BUN 8 mg/dL (7-18); BUN/Creat Ratio 8.8 RATIO (10-20); Calcium,Total 9.5 mg/dL (8.5-10.1); Chloride 108 mmol/L (98-107); Creatinine, Serum 0.91 mg/dL (0.55-1.02); EST Glomerular Filtration Rate 81 mL/min (>60); Est Glom Filt Rate - Afr Amer 98 mL/min (>60); Estimated Creatinine Clearance 79.54 ml/min; Globulin 4.3 g/dL (2.2-4.2); Glucose 92 mg/dL (74-106); Potassium 3.8 mmol/L (3.5-5.1); Protein, Total 7.3 g/dL (6.4-8.2); Sodium Level 140 mmol/L (136-145)
[2022-01-08 12:03] VITALS: TEMP 36.7
[2022-01-08] MEDS: proCHLORPERazine 10 MG/2 ML Vial IV (12:47)
[2022-01-08] MEDS: DiphenhydrAMINE 50 MG/ML Syringe IV (12:47)
[2022-01-08 14:48] VITALS: BP 118/79; PULSE 82; RESP 15; O2SAT 98
== END 2022-01-08 14:48 | disposition home or self-care (01) ==
PROVIDERS: Emergency Provider Emergency Medicine; PCP Family Medicine; Visit Provider Emergency Medicine
DX: O21.2 Late vomiting of pregnancy (principal); Z3A.35 35 weeks gestation of pregnancy; O99.323 Drug use complicating pregnancy, third trimester; F12.90 Cannabis use, unspecified, uncomplicated; O99.343 Other mental disorders complicating pregnancy, third trimester; F32.A Depression, unspecified; F41.9 Anxiety disorder, unspecified; Z79.899 Other long term (current) drug therapy; Z87.891 Personal history of nicotine dependence
CPT/HCPCS: 80053; 85025; 96361; 96374; 96375; 99283; J7030; A4216; J2405

== ENCOUNTER 2022-01-09 08:03 | Outpatient (CLI) | payer OTHER, MEDICAID, SELFPAY ==
[2022-01-09 08:03] VITALS: BP 121/62; PULSE 78; RESP 18; TEMP 36.1; O2SAT 99; BMI 33.5
--- NOTE | 2022-01-09 09:00 | ED.VIS.GI ---
HPI HPI - GI History of Present Illness Chief Complaint: Nausea/Vomiting Informant: patient Abdominal Pain/Flank Pain Onset: Yesterday Context: Gradual Onset Timing: Continuous Quality: Aching and Burning Location: Diffuse Worsened by: Nothing Relieved by: Nothing Nausea/Vomiting/Emesis GI Symptom: Positive for Nausea and Vomiting Onset: Days (3) Quality: Positive for Nonbilious; Negative for Blood streaks, Coffee ground or Hematemesis Diarrhea/Melena/Hematochezia GI Symptom: Negative for Diarrhea, Melena or Hematochezia Associated Symptoms Associated Symptoms: Negative for Dysuria, Frequency or Hematuria Narrative Narrative: Patient presents with nausea and vomiting that has been constant for the past 3 days. Patient denies any hematemesis or coffee-ground emesis. Patient denies any diarrhea, melena, or hematochezia. Patient is 37 weeks . Patient states she is starting to have some abdominal pain from the vomiting. Patient describes as aching and burning. Patient states it is diffuse across her abdomen. Patient states nothing makes it better nothing makes it worse. Patient was seen here yesterday. Patient states she was given a prescription for medication which has not been helping. Patient states that it has actually made it worse. [facility] Medical History Abnormal glucose affecting Anxiety Depression with anxiety Marijuana abuse Methamphetamine use Home Medications multivitamin no.47-iron fum 27 mg-folate no.1 1 mg-dha 300 mg capsule (PNV-DHA) 1 cap PO Check with primary doctor 06/22/20 [History Last Taken Unknown] citalopram 10 mg tablet (Celexa) 10 mg PO DAILY Check with primary doctor 12/17/20 [History Last Taken Unknown] famotidine 20 mg tablet (Pepcid) 20 mg PO BID Check with primary doctor 12/17/20 [History Last Taken Unknown] nitrofurantoin monohydrate/macrocrystals 100 mg capsule (Macrobid) 100 mg PO BID #14 caps 12/17/21 [Rx Last Taken Unknown] promethazine 25 mg tablet 25 mg PO Q6H PRN nausea and vomiting #20 tabs 01/08/22 [Rx Last Taken Unknown] Allergy/AdvReac Type Severity Reaction Status Date / Time No Known Allergies Allergy Verified 01/08/22 10:17 Family History Mother Diabetes Father Diabetes Grandmother Breast cancer Surgical History No significant past surgical history Social History adopted: No household members: significant other housing: house current occupational status: unemployed pets and animals: Yes Smoking Status: Former smoker second hand exposure: Yes alcohol intake: never substance use type: marijuana seatbelt use: always do you feel safe at home: Yes additional social history: MARICHUY- [employer]ok ([employer]) ROS ROS ED Constitutional Constitutional ED: Denies chills or fever(s) Eyes Eyes: Denies blurry vision or change in vision ENT ENT ED: Denies rhinorrhea or sore throat Cardiovascular Cardiovascular: Reports chest pain; Denies palpitations Respiratory/Chest Respiratory/Chest: Denies cough or dyspnea Gastrointestinal Gastrointestinal: Reports abdominal pain, nausea and vomiting Genitourinary Genitourinary ED: Denies dysuria or hematuria Musculoskeletal Musculoskeletal: Denies back pain or neck pain Integumentary Denies abscess or rash Neurologic Neurologic: Denies headache(s) or weakness Allergic/Immunologic Allergic/Immunologic ED: Denies mouth swelling or urticaria EXAM Physical Exam Const Vital Signs: 01/09/22 08:03 Temperature 97.0 F L Temperature Source Temporal Pulse Rate 78 Respiratory Rate 18 Blood Pressure 121/62 H Blood Pressure Mean 81 Pulse Ox 99 Oxygen Delivery Method Room Air Positive well nourished and well developed General Appearance ED: well developed HEENT Reports moist mucous membranes Neck supple and no JVD Resp normal respiratory effort and clear to auscultation bilaterally Cardio regular rate, regular rhythm and no murmurs GI normal to inspection, nondistended, normoactive bowel sounds GI Narrative: There is a gravid uterus. There is mild diffuse tenderness. Palpation: soft; Negative for guarding or rebound tenderness present Extremity normal to inspection General Extremety ED: Negative for edema or tenderness General Extremity: Negative for edema Neuro oriented x3, CN's II-XII intact bilaterally and no sensory deficits noted Sensorium / Orientation: alert Motor Exam: strength 5/5 throughout Psych mental status grossly normal Skin no rashes or lesions noted MDM MDM MDM Narrative Medical decision making narrative: Patient was given a dose of IM Reglan. Patient will be discharged to go to OB triage for further evaluation of her . Patient was instructed to follow-up with her [facility] in 5 to 7 days. Patient understood and was agreeable with the plan. All questions were answered. Discharge Plan Triage Chief Complaint: Nausea/Vomiting ED Provider: Alverto Santiago Dx/Rx/DC Orders Clinical Impression: Nausea and vomiting, Third trimester Instructions: ED Vomiting (Adult) Prescriptions: No Action PNV-DHA 27 mg iron-1 mg -300 mg capsule 1 cap PO citalopram [Celexa] 10 mg tablet 10 mg PO DAILY famotidine [Pepcid] 20 mg tablet 20 mg PO BID nitrofurantoin monohyd/m-cryst [Macrobid] 100 mg capsule 100 mg PO BID Qty: 14 0RF Rx Instructions: must administer with a meal/food promethazine 25 mg tablet 25 mg PO Q6H PRN (Reason: nausea and vomiting) Qty: 20 0RF Primary Care Provider: Ray Vazquez Referrals: Ray Vazquez MD [Primary Care Provider] - Jessica Carpio MD [Med Staff - Active Staff] - 3-5 Days Disposition Disposition: Home, Self Care
[2022-01-09] MEDS: Metoclopramide 10 MG/2 ML Vial IM (09:16)
--- NOTE | 2022-01-09 09:20 | ED.RN ---
PT IS GOING TO OB TRIAGE TO BE EVALUATED. OB CONTACTED PTS OFFICE SERVICES MANAGER.
[2022-01-09 09:45] VITALS: TEMP 37.3; O2SAT 99
[2022-01-09 09:46] VITALS: BP 125/59; PULSE 80
[2022-01-09 09:48] VITALS: BMI 32.4
[2022-01-09] MEDS: Ondansetron 4 MG/2 ML Vial IV (10:17)
[2022-01-09] MEDS: Lactated Ringers 1,000 ML 999 ML IV (10:18)
[2022-01-09 11:30] LABS: Amphetamine Urine VISTA NEGATIVE (<1000 ng/mL); Barbiturate Urine VISTA NEGATIVE (< 200 ng/mL); Benzodiazepine Urine VISTA NEGATIVE (< 200 ng/mL); Cocaine Urine VISTA NEGATIVE (< 300 ng/mL); Ecstacy Urine VISTA NEGATIVE (< 500 ng/mL); Methadone Urine VISTA NEGATIVE (< 300 ng/mL); PCP Urine VISTA NEGATIVE (< 25 ng/mL); THC Urine VISTA POSITIVE (< 50 ng/mL); Vista UDS pH Range 5
--- NOTE | 2022-01-09 13:36 | OB.TRI.NOTE ---
HPI - General HPI Narrative STEPAN QIU, is a 21 F who presents as NPNC patient due to extreme nausea and vomiting in . 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 She has a provider in [place] that she is following with but states that she was unable to get through to the doctor today. She denies lof, vaginal bleeding ,or dec fm. he has a h/o drug abuse in the past but states that she is not using drugs this . [facility] Medical History (Updated 01/16/22 @ 00:01 by Gustabo Lomeli) Abnormal glucose affecting Anxiety Depression with anxiety Marijuana abuse Methamphetamine use Home Medications multivitamin no.47-iron fum 27 mg-folate no.1 1 mg-dha 300 mg capsule (PNV-DHA) 1 cap PO Check with primary doctor 06/22/20 [History Last Taken Unknown] citalopram 10 mg tablet (Celexa) 10 mg PO DAILY Check with primary doctor 12/17/20 [History Last Taken Unknown] famotidine 20 mg tablet (Pepcid) 20 mg PO BID Check with primary doctor 12/17/20 [History Last Taken Unknown] nitrofurantoin monohydrate/macrocrystals 100 mg capsule (Macrobid) 100 mg PO BID #14 caps 12/17/21 [Rx Last Taken Unknown] promethazine 25 mg tablet 25 mg PO Q6H PRN nausea and vomiting #20 tabs 01/08/22 [Rx Last Taken Unknown] Allergy/AdvReac Type Severity Reaction Status Date / Time No Known Allergies Allergy Verified 01/09/22 09:49 Family History Mother Diabetes Father Diabetes Grandmother Breast cancer Surgical History No significant past surgical history Social History adopted: No household members: significant other housing: house current occupational status: unemployed pets and animals: Yes Smoking Status: Former smoker second hand exposure: Yes alcohol intake: never substance use type: marijuana seatbelt use: always do you feel safe at home: Yes additional social history: BF- Alok ([employer]) History 1 Elective abortions Hx Para 0 Spontaneous abortions Hx # Term Pregnancies Ectopic pregnancies Hx # Pregnancies Multiple births # of living children 1 Past Pregnancies Del. Date Name GA/Weeks Outcome Route Bth Weight Infant Gen Labor Lgth Anesthesia Del Locatn Provider FOB 12/17/20 John 37 live - full term Female [facility] Dr. Balaji RIOS Constitutional Constitutional: Reports systems reviewed and no addt'l complaints, except as documented Gastrointestinal Gastrointestinal: Denies bloating, constipation, cramping, diarrhea, nausea or vomiting Genitourinary Genitourinary: Reports other Details: Denies vaginal odor, vaginal bleeding, or vaginal discharge ; Denies difficulty urinating or flank pain Physical Exam HEENT normocephalic Resp normal respiratory effort and normal air movement no CVA tenderness Extremity normal to inspection General Extremity: edema bilateral (trace ) NST FHR Rate Baby A Baseline: 140 Variability:: Moderate Accelerations:: 15 x 15 Decelerations:: None NST Reactive:: Yes FHR Category:: Category I Assessment & Plan (1) Nausea and vomiting: PLAN: Tox screen negative. She was given a liter of fluids and Zofran IV and felt better. She was discharged with instruction to follow up with her OB in [facility]. (2) Third trimester : Charges/Coding Multi Select Codes Visit Charges Office Visit/Consults: 15103 OV L3 Est Urinary/Genital Urinary/Genital CPT Codes: 34780-69 non-stress test Interp
== END 2022-01-09 11:01 | disposition home or self-care (01) ==
LOC: ED 09:22 → WPOUT 09:41 → WP 09:42
PROVIDERS: Emergency Provider Emergency Medicine; PCP Family Medicine; Visit Provider Obstetrics & Gynecology
DX: O21.2 Late vomiting of pregnancy (principal); O99.343 Other mental disorders complicating pregnancy, third trimester; F41.8 Other specified anxiety disorders; O99.323 Drug use complicating pregnancy, third trimester; F12.10 Cannabis abuse, uncomplicated; Z87.891 Personal history of nicotine dependence; Z3A.37 37 weeks gestation of pregnancy
CPT/HCPCS: 96374; 59025; 80307; 99282; J7120; J2405

== ENCOUNTER 2024-09-05 17:05 | Emergency (ER) | payer OTHER, MEDICAID, SELFPAY ==
[2024-09-05 17:07] VITALS: BP 123/92; PULSE 95; RESP 18; TEMP 36.7; O2SAT 100; BMI 30.3
[2024-09-05 17:08] VITALS: BP 123/92; PULSE 95; RESP 18; TEMP 36.7; O2SAT 100
== END 2024-09-05 18:00 | disposition left against medical advice (07) ==
LOC: ED 19:56
PROVIDERS: PCP Family Medicine
DX: Z53.21 Procedure and treatment not carried out due to patient leaving prior to being seen by health care provider (principal)

== ENCOUNTER 2024-09-05 19:46 | Emergency (ER) | payer SELFPAY ==
[2024-09-05 19:50] VITALS: BP 120/77; PULSE 98; RESP 18; TEMP 36.9; O2SAT 97
[2024-09-05 20:23] LABS: Hematocrit 37.8 % (37-47); Hemoglobin 12.9 g/dL (12.0-15.0); Immature Granulocytes Count 0.080 X10^3/uL (0.0-0.0); Mean Corp Hgb Conc 34.1 g/dL (32-36); Mean Corpuscular Volume 87.7 fL (81-99); Mean Platelet Vol. 11.6 fl (6.2-12.0); NRBC Flagged by Analyzer 0 % (0-5); Platelet Count 357 K/mm3 (150-450); RBC Distribution Width CV 12.4 % (11.6-14.6); RBC Distribution Width SD 39.7 fl (35.1-43.9); Red Blood Count 4.31 M/mm3 (4.2-5.4); White Blood Count 14.2 K/mm3 (4.4-11.0)
[2024-09-05 20:35] LABS: Internal QC Validated? YES +Cl - CLEAR BKGD; Pregnancy, Serum, hCG Quali. NEGATIVE Negative; Record Kit Lot#, Serum Preg. 0000947241
[2024-09-05 20:52] LABS: AST(SGOT) 15 U/L (<=31); Alanine Aminotransfer ALT/SGPT 22 U/L (<=34); Albumin, Serum 4.2 g/dL (3.5-5.0); Alkaline Phosphatase 87 U/L (35-104); Anion Gap 11 (5-15); BUN 10 mg/dL (4-19); BUN/Creat Ratio 10.6 RATIO (10-20); Calcium,Total 9.2 mg/dL (7.6-11.0); Carbon Dioxide 23.3 mmol/L (21.0-32.0); Chloride 107 mmol/L (98-108); Globulin 3.1 g/dL (2.2-4.2); Glucose 104 mg/dL (70-99); Potassium 3.4 mmol/L (3.3-5.1)
[2024-09-05 22:09] LABS: Mucous, Urine 0 SEEN /hpf (<or=2+)
[2024-09-05 22:15] LABS: Color, Urine Yellow (Yellow); Glucose, Dipstick Normal (Normal); Ketone-Dipstick Negative (Negative); Leukocyte Esterase-Dipstick 500 /ul (Negative); Nitrite-Dipstick Negative (Negative); Occult Blood-Urine 250 /ul (Negative); Protein-Dipstick 100 mg/dl (Negative); Specific Gravity, Urine 1.015 (1.002-1.030); Urine Bilirubin Dipstick Negative (Negative)
[2024-09-05 22:37] LABS: Squamous Epithelial Cells - UA 25-50 SEEN /hpf (5-10)
[2024-09-05 22:38] LABS: Red Blood Cells-Urine 5-10 SEEN /hpf (0-5)
[2024-09-05 23:30] VITALS: BP 111/79; PULSE 93; RESP 16; O2SAT 98; BMI 30.2
[2024-09-05] MEDS: 0.9% Normal Saline (1000mL) 1,000 ML 999 ML IV (23:34)
--- NOTE | 2024-09-06 00:54 | EDS_ITS ---
HPI History of Present Illness Chief Complaint: Flank Pain Informant: patient and spouse/S.O. Narrative Narrative: Patient is a 24-year-old female with past medical history of depression with anxiety. She states over the past 1 to 2 days she has had urinary frequency and urgency with minimal urine output and dysuria. She states she now has pain along the left back. She denies any recent trauma or excessive activity. She denies any recent surgical procedures or injections to the back she denies any loss of bowel or bladder control or IV drug use. She states she is unsure if she has a urinary tract infection or another issue causing her symptoms and the refore she comes in for evaluation. [facility] Medical History (Updated 09/06/24 @ 03:[address] Jhonny Orozco, DO) Anxiety Abnormal glucose affecting Methamphetamine use Marijuana abuse Depression with anxiety Home Medications ?Medication ?Instructions ?Recorded ?Last Taken ?Type ondansetron 4 mg disintegrating 4 mg PO TID PRN nausea and 09/06/24 Unknown Rx tablet vomiting #21 tabs oxycodone-acetaminophen 5 mg-325 1 tab PO Q6H PRN pain 3 days #12 09/06/24 Unknown Rx mg tablet (Percocet) tabs sulfamethoxazole 800 1 tab PO BID 10 days #20 tab s 09/06/24 Unknown Rx mg-trimethoprim 160 mg tablet (Bactrim DS) Allergy/AdvReac Type Severity Reaction Status Date / Time No Known Allergies Allergy Verified 09/05/24 19:50 Family History Mother Diabetes Father Diabetes Grandmother Breast cancer Surgical History No significant past surgical history Social History adopted: No household members: significant other housing: house current occupational status: unemployed pets and animals: Yes Smoking Status: Current every day smoker tobacco type: cigarettes second hand exposure: Yes alcohol intake: never substance use type: marijuana seatbelt use: always do you feel safe at home: Yes additional social history: BERONICA Dickinson ([employer]) ROS ROS ED Constitutional Constitutional ED: Denies chills or fever(s) ENT ENT ED: Denies sore throat Cardiovascular Cardiovascular: Denies chest pain Respiratory/Chest Respiratory/Chest: Denies cough or dyspnea Gastrointestinal Gastrointestinal: Reports nausea; Denies abdominal pain, diarrhea or vomiting Genitourinary Genitourinary ED: Reports dysuria and urinary frequency; Denies hematuria Musculoskeletal Musculoskeletal: Reports back pain Integumentary Denies rash Neurologic Neurologic: Denies headache(s) Hematologic/Lymphatic Hematologic/Lymphatic: Denies easy bleeding or easy bruising EXAM Physical Exam Const Vital Signs: 09/05/24 19:50 09/05/24 23:30 09/06/24 00:58 Temperature 98.4 F 98.2 F Temperature Source Oral Pulse Rate 98 93 72 Respiratory Rate 18 16 18 Blood Pressure 120/77 111/79 120/75 Blood Pressure Mean 91 89 90 Pulse Ox 97 98 100 Oxygen Delivery Method Room Air Room Air Positive well nourished and well developed General Appearance ED: well developed; Negative for pallor HEENT HEENT Narrative: Normocephalic atraumatic Eyes PERRL and EOMs intact bilaterally General Eye ED: Negative for scleral icterus Neck supple Neck Narrative: No nuchal rigidity or meningeal signs Resp normal respiratory effort and clear to auscultation bilaterally Cardio regular rate and regular rhythm Rate: other Other Details: Heart is regular rate and rhythm without murmurs rubs or gallops Radial and carotid pulses are equal and symmetric GI non-distended and no masses GI Narrative: Abdomen is soft and nondistended with normal active bowel sounds. Patient has pain with palpation in the suprapubic region. No voluntary guarding or rigidity or pulsatile mass. No organomegaly to suggest urinary retention Auscultation: normoactive bowel sounds Palpation: soft Back/Spine Back/Spine Narrative: Positive left CVA pain No saddle anesthesia. Negative straight leg raise. No clonus or Babinski. Patellar reflexes are +2-4 bilaterally Extremity normal to inspection Neuro oriented x3, CN's II-XII intact bilaterally and no sensory deficits noted Sensorium / Orientation: alert Motor Exam: strength 5/5 throughout Psych mental status grossly normal Skin no rashes or lesions noted and no wounds Skin Narrative: No overlying soft tissue changes to suggest trauma or infection General Skin Exam: Negative for jaundice or pallor MDM MDM MDM Narrative Medical decision making narrative: Patient arrived to the ER with stable vitals. She reported left-sided back pain but also noted urinary frequency urgency and dysuria. History and exam is concerning for UTI versus pyelonephritis versus kidney stone. In order to rule out acute kidney injury or complication basic blood work with urine sample were obtained. White count is elevated at 14 consistent with infection but there is no signs of BILL or . Urine shows changes consistent with infection as well as blood. The blood could be related to the UTI but will with unilateral flank pain there is also concern for a kidney stone causing a secondary infection. Therefore a noncontrast CT was obtained. This revealed no sign of stone but did show changes consistent with inflammation around the kidneys/pyelonephritis. At this time the patient's vitals are stable her labs do not suggest acute kidney injury or urosepsis and she is not and therefore there is no need for admission. The urine to be sent for culture to ensure she is on the proper antibiotic and show given Rocephin in the ER. After receiving that she will be discharged home on Bactrim and symptomatic medications but without signs of BILL or urosepsis there is no need for further workup and she is otherwise safe for discharge. History & Record Review Discussion w/independent historian: Patient and Significant other Lab Data Attestation: I reviewed the patient's lab results. Labs: Laboratory Results - last 24 hr 09/05/24 09/05/24 20:10 22:00 WBC 14.2 H RBC 4.31 Hgb 12.9 Hct 37.8 MCV 87.7 MCH 29.9 MCHC 34.1 RDW Std Deviation 39.7 RDW Coeff of Esteban 12.4 Plt Count 357 MPV 11.6 Immature Gran % (Auto) 0.600 Neut % (Auto) 79.4 H Lymph % (Auto) 11.5 L [place] % (Auto) 5.7 Eos % (Auto) 2.2 Baso % (Auto) 0.6 Absolute Neuts (auto) 11.3 H Absolute Lymphs (auto) 1.64 Nucleated RBC % 0 Sodium 141 Potassium 3.4 Chloride 107 Carbon Dioxide 23.3 Anion Gap 11 BUN 10 Creatinine 0.92 Est GFR (MDRD) Non-Af 88 BUN/Creatinine Ratio 10.6 Glucose 104 H Calcium 9.2 Total Bilirubin 0.45 AST 15 ALT 22 Alkaline Phosphatase 87 Total Protein 7.3 Albumin 4.2 Globulin 3.1 Albumin/Globulin Ratio 1.3 Serum , Qual NEGATIVE Urine Color Yellow Urine Clarity Turbid Urine pH 8.0 Ur Specific [place] 1.015 Urine Protein 100 H Urine Glucose (UA) Normal Urine Ketones Negative Urine Occult Blood 250 H Urine Nitrite Negative Urine Bilirubin Negative Urine Urobilinogen Normal Ur Leukocyte Esterase 500 H Urine RBC 5-10 SEEN Urine WBC >100 SEEN Ur Squamous Epith Cells 25-50 SEEN Urine Bacteria 4+ Urine Mucus 0 SEEN Radiography Diagnostic Testing: Clinical Impression(s) from Imaging Studies Abdomen/Pelvis CT 09/06/24 23:29 IMPRESSION: No kidney/ureter stone or hydronephrosis. Minimal perinephric and periureteral edema/fat stranding which could raise the possibility of pyelonephritis/recent stone passage. Thickening of the wall of the urinary bladder raising the possibility of cystitis. Please correlate clinically. Reading [facility] [place] [address] Discharge Plan Triage Chief Complaint: Flank Pain ED Provider: Jhonny Orozco Dx/Rx/DC Orders Clinical Impression: Pyelonephritis, Depression with anxiety Instructions: Kidney Infec Dc Prescriptions: New ondansetron 4 mg tablet,disintegrating 4 mg PO TID PRN (Reason: nausea and vomiting) Qty: 21 0RF oxycodone-acetaminophen [Percocet] 5-325 mg tablet 1 tab PO Q6H PRN (Reason: pain) 3 Days Qty: 12 0RF sulfamethoxazole-trimethoprim [Bactrim DS] 800-160 mg tablet 1 tab PO BID 10 Days Qty: 20 0RF Primary Care Provider: Jeremiah Vazquez Referrals: Jeremiah Vazquez MD [Primary Care Provider] - Activity Restrictions/Additional Instructions: Your workup today is consistent with UTI and kidney infection. Take the prescribed medication as directed to help control your symptoms. It will typically take 2 to 3 days for symptom improvement. If you have any further concerns please return to the ER for repeat evaluation Print Language: Amharic Disposition Disposition: Home, Self Care Discharge Date/Time: 09/06/24 01:09
[2024-09-06 00:58] VITALS: BP 120/75; PULSE 72; RESP 18; TEMP 36.8; O2SAT 100
--- NOTE | 2024-09-06 23:29 | CT_ITS ---
PROCEDURE: ABDOMEN/PELVIS WITHOUT CONT 09/06/2024 REASON FOR EXAM: LEFT FLANK PAIN TECHNIQUE: ABDOMEN/PELVIS WITHOUT CONT Noncontrast technique limits evaluation of the abdominal and pelvic viscera. Coronal and Sagittal reconstruction series were provided. One or more dose reduction techniques were used (e.g., Automated exposure control, adjustment of the mA and/or kV according to patient size, use of iterative reconstruction technique). RADIATION DOSE SUMMARY: CTDlvol: 9.29 mGy DLP: 498.93 mGycm COMPARISON: None FINDINGS: CT SCAN OF THE ABDOMEN AND PELVIS WITHOUT ORAL OR IV CONTRAST. CLINICAL INDICATION: TECHNIQUE: Axial and reformatted sagittal and coronal images of the abdomen pelvis obtained without IV contrast administration. COMPARISON: None. FINDINGS: The visualized lung bases are unremarkable. Normal unenhanced liver. Normal gallbladder and extrahepatic biliary system. Normal unenhanced spleen. Normal pancreas. Normal bilateral adrenal glands. Normal size of the right kidney. There is no right renal mass. There are no right renal calculi. There is no right hydronephrosis. Normal visualized right ureter. Normal size of the left kidney. There is no left renal mass. There are no left renal calculi. There is no left hydronephrosis. There is minimal perinephric and periureteral edema/fat stranding which could raise the possibility of pyelonephritis/recent stone passage. Normal visualized left ureter. Normal visualized stomach. Normal small intestine. Normal colon. The appendix is visualized and appears normal. There is no demonstrated peritoneal fluid. Normal abdominal aorta. Normal inferior vena cava. Normal retroperitoneum. There is thickening of the wall of the urinary bladder raising the possibility of cystitis. There is no pelvic mass lesion or lymphadenopathy. There is no pelvic fluid. Normal abdominal wall. Normal osseous structures. CT/Abdomen/Pelvis without Cont IMPRESSION: No kidney/ureter stone or hydronephrosis. Minimal perinephric and periureteral edema/fat stranding which could raise the possibility of pyelonephritis/recent stone passage. Thickening of the wall of the urinary bladder raising the possibility of cystit is. Please correlate clinically. Reading Location: [place] [id number]
== END 2024-09-06 01:09 | disposition home or self-care (01) ==
PROVIDERS: Emergency Provider Emergency Medicine; PCP Family Medicine; Visit Provider Emergency Medicine
DX: N12 Tubulo-interstitial nephritis, not specified as acute or chronic (principal); F32.A Depression, unspecified; F41.9 Anxiety disorder, unspecified; F17.210 Nicotine dependence, cigarettes, uncomplicated
CPT/HCPCS: 74176; 80053; 81001; 84703; 85025; 87077; 87086; 87088; 87186; 96361; 96365; 96375; 96376; 99285; A4216; J2405